=== PATIENT | male | born 2000 | race African-American/Black ===

== ENCOUNTER 2025-02-27 04:13 | Emergency (ER) | payer OTHER, SELFPAY ==
--- NOTE | 2025-02-27 04:39 | EDPHYS ---
Physician Documentation [facility] Name: Roni Ghotra Age: 24 yrs Sex: Male : 2000 Arrival Date: 02/27/2025 Time: 04:13 Bed 6 Private MD: ED Physician Aneudy Huizar HPI: 02/27 04:39 This 24 yrs old Black Male presents to ER via Unassigned with complaints of Hand ms3 Injury, Arm Injury. 04:39 24-year-old male with past medical history of heart murmur presents to the emergency ms3 department for right hand fourth metacarpal fracture. Patient states he fractured his fourth metacarpal on February 21, 2025 after punching a car window. Patient states today he had to jump into a pool to get his child out and got his splint wet requiring him to take it off. Patient states he needs new splint placement.. Historical: - Allergies: 04:42 No Known Allergies; al5 - PMHx: 04:42 Heart Murmur; al5 - PSHx: 04:42 right MCL repair; al5 - Immunization history:: Adult Immunizations up to date. - Infectious Disease History:: Denies. - Social history:: Smoking status: Patient denies any tobacco usage or history of. ROS: 04:39 Constitutional: Negative for fever, and chills. Cardiovascular: Negative for chest ms3 pain, and palpitations. Respiratory: Negative for shortness of breath, cough, wheezing, and pleuritic chest pain, Abdomen/GI: Negative for abdominal pain, nausea, vomiting, diarrhea, and constipation, 04:39 MS/extremity: Positive for Right metacarpal fracture, Exam: 04:39 Constitutional: This is a well developed, well nourished patient who is awake, alert, ms3 and in no acute distress. Cardiovascular: Regular rate and rhythm with a normal S1 and S2. No gallops, murmurs, or rubs. Normal PMI, no JVD. No pulse deficits. Respiratory: Lungs have equal breath sounds bilaterally, clear to auscultation and percussion. No rales, rhonchi or wheezes noted. No increased work of breathing, no retractions or nasal flaring. Abdomen/GI: Soft, non-tender, with normal bowel sounds. No distension or tympany. No guarding or rebound. No evidence of tenderness throughout. 04:39 Musculoskeletal/extremity: Extremities: noted in the Right fourth metacarpal: pain, swelling, tenderness, Cap refill less than 2 seconds fourth digit. Sensation intact. Vital Signs: 04:22 BP 151 / 93; Pulse 72; Resp 18 S; Temp 97.6; Pulse Ox 100% ; Weight 83.91 kg; Height 5 al5 ft. 9 in. ; Pain 6/10; 04:22 Body Mass Index 27.32 (83.91 kg, 175.26 cm) al5 04:22 Pain Scale: Adult al5 MDM: 04:34 Medical Screening Exam initiated ms3 04:39 Differential diagnosis: closed fracture, contusion. Data reviewed: vital signs, nurses ms3 notes, and as a result, I will discharge patient. Counseling: I had a detailed discussion with the patient and/or guardian regarding the historical points, exam findings, and any diagnostic results supporting the discharge/admit diagnosis, the need for outpatient follow up, to return to the emergency department if symptoms worsen or persist or if there are any questions or concerns that arise at home. Special discussion: I discussed with the patient/guardian in detail that at this point there is no indication for admission to the hospital. It is understood, however, that if the symptoms persist or worsen the patient needs to return immediately for re-evaluation. ED course: Ulnar gutter splint placed. Patient to follow-up as instructed by [employer] with hand surgery. All questions were answered. Return precautions were discussed to include worsening symptoms, or any other concerns. Patient's right hand is neurovascularly intact without signs of compartment syndrome present at this time.. 02/27 04:35 Order name: Splint - Ulnar Gutter; Complete Time: 05:10 ms3 Administered Medications: No medications were administered Disposition Summary: 02/27/25 04:39 Discharge Ordered Notes: Location: Home ms3 Condition: Stable ms3 Diagnosis - Unspecified fracture of fourth metacarpal bone, right hand, initial encounter for ms3 closed fracture Followup: ms3 - With: Private Physician - When: 2 - 3 days - Reason: Recheck today's complaints Discharge Instructions: - Discharge Summary Sheet ms3 - Metacarpal Fracture ms3 Forms: - Medication Reconciliation Form ms3 - Antibiotic Education ms3 - Prescription Opioid Use ms3 - Patient Portal Instructions ms3 - Leadership Thank You Letter ms3 Signatures: Aneudy Huizar, DO ms3 Kristen Phillips, RN RN al5
--- NOTE | 2025-02-27 05:11 | ER ---
Nurse's Notes [facility] Name: Roni Ghotra Age: 24 yrs Sex: Male : 2000 Arrival Date: 02/27/2025 Time: 04:13 Bed 6 Private MD: Diagnosis: Unspecified fracture of fourth metacarpal bone, right hand, initial encounter for closed fracture Presentation: 02/27 04:22 Chief complaint: Patient states: HAD A SPLINT PUT ON TWO WEEKS AGO DUE TO FRACTURE ON al5 THE RIGHT FOREARM. TONIGHT THE SPLINT GOT WET AND REMOVED IT. NEEDS A NEW SPLINT. 04:22 Coronavirus screen: Client denies travel out of the [place] in the last 14 days. Ebola al5 Screen: No symptoms or risks identified at this time. Initial Sepsis Screen: Does the patient meet any 2 criteria? No. Patient's initial sepsis screen is negative. Does the patient have a suspected source of infection? No. Patient's initial sepsis screen is negative. Risk Assessment: Do you want to hurt yourself or someone else? Patient reports no desire to harm self or others. Onset of symptoms was February 27, 2025. 04:22 Method Of Arrival: Ambulatory al5 04:22 Acuity: ORION 4 al5 Triage Assessment: 04:42 General: Appears uncomfortable, Behavior is calm, cooperative. Pain: Complains of pain al5 in dorsal aspect of right forearm Pain currently is 6 out of 10 on a pain scale. Quality of pain is described as aching. Neuro: Level of Consciousness is awake, alert, obeys commands, Oriented to person, place, time, situation. Cardiovascular: Capillary refill < 3 seconds Patient's skin is warm and dry. Respiratory: Airway is patent Respiratory effort is even, unlabored, Respiratory pattern is regular, symmetrical. GI: No signs and/or symptoms were reported involving the gastrointestinal system. : No signs and/or symptoms were reported regarding the genitourinary system. Derm: Skin is pink, warm \T\ dry. Musculoskeletal: Circulation, motion, and sensation intact. Reports pain in dorsal aspect of right forearm. Historical: - Allergies: 04:42 No Known Allergies; al5 - PMHx: 04:42 Heart Murmur; al5 - PSHx: 04:42 right MCL repair; al5 - Immunization history:: Adult Immunizations up to date. - Infectious Disease History:: Denies. - Social history:: Smoking status: Patient denies any tobacco usage or history of. Screenin:44 [facility] ED Fall Risk Assessment (Adult) History of falling in the last 3 months, al5 including since admission No falls in past 3 months (0 pts) Confusion or Disorientation No (0 pts) Intoxicated or Sedated No (0 pts) Impaired Gait No (0 pts) Mobility Assist Device Used No (0 pt) Altered Elimination No (0 pt) Score/Fall Risk Level 0 - 2 = Low Risk Oriented to surroundings, Maintained a safe environment, Educated pt \T\ family on fall prevention, incl call for assistance when getting out of bed, Hourly rounding (assess needs \T\ fall precautionary measures) done. Abuse screen: Denies threats or abuse. Denies injuries from another. Nutritional screening: No deficits noted. Tuberculosis screening: No symptoms or risk factors identified. Vital Signs: 04:22 BP 151 / 93; Pulse 72; Resp 18 S; Temp 97.6; Pulse Ox 100% ; Weight 83.91 kg; Height 5 al5 ft. 9 in. ; Pain 6/10; 04:22 Body Mass Index 27.32 (83.91 kg, 175.26 cm) al5 04:22 Pain Scale: Adult al5 ED Course: 04:18 Patient arrived in ED. [email or web address] 04:22 Patient has correct armband on for positive identification. Bed in low position. Call al5 light in reach. Side rails up X 1. 04:22 Provided Education on: SPLINT CARE. al5 04:23 Aneudy Huizar DO is Attending Physician. ms3 04:42 Triage completed. al5 04:45 Arm band placed on left wrist. al5 05:10 No provider procedures requiring assistance completed. Patient did not have IV access al5 during this emergency room visit. Administered Medications: No medications were administered Medication: 04:45 VIS not applicable for this client. al5 Outcome: 04:39 Discharge ordered by . ms3 05:10 Discharged to home ambulatory, with family, al5 05:10 Condition: stable 05:10 Discharge instructions given to patient, family, Instructed on discharge instructions, follow up and referral plans. Demonstrated understanding of instructions, follow-up care, 05:11 Patient left the ED. al5 Signatures: Aneudy Huizar DO DO ms3 Giovana Gonzalez [email or web address] Kristen Phillips, RN RN al5
[2025-02-27 13:36] VITALS: BP 151/93; TEMP 97.6; O2SAT 100
== END 2025-02-27 05:11 | disposition home or self-care (01) ==
LOC: ER 04:13
DX: Z46.89 Encounter for fitting and adjustment of other specified devices (principal)
CPT/HCPCS: 99282